=== PATIENT | female | born 1945 | race Caucasian/White ===

== ENCOUNTER → 2017-01-05 | Outpatient (CLI) | payer MEDICARE, OTHER ==
--- NOTE | 2017-01-10 10:46 | MM ---
Reason for exam: screening (asymptomatic). Last mammogram was performed 1 year and 1 month ago. History: Patient is postmenopausal. Family history of breast cancer in aunt. Physical Findings: A clinical breast exam by your physician is recommended on an annual basis and results should be correlated with mammographic findings. MG 3D Screening Mammo W/Cad Bilateral CC and MLO view(s) were taken. Prior study comparison: December 12, 2015, bilateral MG 3d screening mammo w/cad. August 19, 2014, bilateral MG screening mammo w CAD. The breast tissue is heterogeneously dense. This may lower the sensitivity of mammography. There is no discrete abnormality. ASSESSMENT: Negative, BI-RAD 1 RECOMMENDATION: Routine screening mammogram of both breasts in 1 year.
== END | disposition home or self-care (01) ==
LOC: RADMAMWWP 13:21
PROVIDERS: ATTEND Family Medicine
DX: Z12.31 Encounter for screening mammogram for malignant neoplasm of breast (principal)
CPT/HCPCS: 77063; G0202

== ENCOUNTER → 2019-02-27 | Outpatient (CLI) | payer MEDICARE, OTHER ==
--- NOTE | 2019-03-01 09:46 | MM ---
Reason for exam: screening (asymptomatic). Last mammogram was performed 2 years and 2 months ago. History: Patient is postmenopausal. Family history of breast cancer in aunt. Physical Findings: A clinical breast exam by your physician is recommended on an annual basis and results should be correlated with mammographic findings. MG 3D Screening Mammo W/Cad Bilateral CC and MLO view(s) were taken. Prior study comparison: January 05, 2017, bilateral MG 3d screening mammo w/cad. December 12, 2015, bilateral MG 3d screening mammo w/cad. The breast tissue is heterogeneously dense. This may lower the sensitivity of mammography. No significant changes when compared with prior studies. ASSESSMENT: Incomplete: need additional imaging evaluation, BI-RAD 0 RECOMMENDATION: Ultrasound of the left breast. [facility] will attempt to contact patient to return for ultrasound.
== END | disposition home or self-care (01) ==
LOC: RADMAMWWP 13:13
PROVIDERS: ATTEND Family Medicine
DX: Z12.31 Encounter for screening mammogram for malignant neoplasm of breast (principal)
CPT/HCPCS: 77063; 77067

== ENCOUNTER → 2019-03-14 | Outpatient (CLI) | payer MEDICARE, OTHER ==
--- NOTE | 2019-03-14 13:13 | USB ---
Reason for exam: additional evaluation requested from abnormal screening. History: Patient is postmenopausal. Family history of breast cancer in aunt. Physical Findings: Nurse Summary: all soft, nodular, movable, tenderness (nurse ts). US Breast Workup Limited LT Left limited breast ultrasound including focal area of concern, retroareolar and axilla demonstrates no cystic or solid lesion seen. No suspicious sonographic findings. These results were verbally communicated with the patient and result sheet given to the patient on 03/14/19. ASSESSMENT: Negative, BI-RAD 1 RECOMMENDATION: Return to routine screening mammogram schedule for both breasts. Manage on a clinical basis with regard to left breast pain.
== END | disposition home or self-care (01) ==
LOC: RADUSWWP 09:37
PROVIDERS: ATTEND Family Medicine
DX: R92.8 Other abnormal and inconclusive findings on diagnostic imaging of breast (principal)

== ENCOUNTER → 2021-01-05 | Outpatient (CLI) | payer MEDICARE, OTHER ==
--- NOTE | 2021-01-05 15:34 | XR ---
EXAMINATION TYPE: XR chest 2V DATE OF EXAM: 01/05/2021 COMPARISON: None HISTORY: 75-year-old female R63.4, abnormal weight loss TECHNIQUE: Frontal and lateral views FINDINGS: Heart normal size. Aorta and pulmonary vasculature within normal limits. Mild hyperinflation. There i s some bulging along the posterior diaphragm on the lateral view, either small area of eventration or small Bochdalek hernia. Otherwise, no consolidation or pleural effusion. IMPRESSION: Mild hyperinflation may relate to depth of inspiration or underlying emphysema. Clinically correlate. Otherwise, no acute process seen.
== END | disposition home or self-care (01) ==
LOC: RADXRMAIN 12:41
PROVIDERS: ATTEND Family Medicine
DX: R63.4 Abnormal weight loss (principal)
CPT/HCPCS: 71046

== ENCOUNTER → 2021-04-03 | Outpatient (CLI) | payer MEDICARE, OTHER ==
--- NOTE | 2021-04-06 11:42 | MM ---
Reason for exam: screening (asymptomatic). Last mammogram was performed 2 years and 1 month ago. History: Patient is postmenopausal. Family history of breast cancer in aunt. Physical Findings: A clinical breast exam by your physician is recommended on an annual basis and results should be correlated with mammographic findings. MG 3D Screening Mammo W/Cad Bilateral CC and MLO view(s) were taken. Prior study comparison: February 27, 2019, bilateral MG 3d screening mammo w/cad. January 05, 2017, bilateral MG 3d screening mammo w/cad. The breast tissue is heterogeneously dense. This may lower the sensitivity of mammography. Finding: There are indeterminate calcifications in the 3 o'clock position of the left breast 8-9cm from the nipple. New finding since February 27, 2019 and January 05, 2017. ASSESSMENT: Incomplete: need additional imaging evaluation, BI-RAD 0 RECOMMENDATION: Special view mammogram of the left breast. [facility] will attempt to contact patient to return for supplemental views.
== END | disposition home or self-care (01) ==
LOC: RADMAMWWP 09:56
PROVIDERS: ATTEND Family Medicine
DX: Z12.31 Encounter for screening mammogram for malignant neoplasm of breast (principal); Z80.3 Family history of malignant neoplasm of breast; Z78.0 Asymptomatic menopausal state
CPT/HCPCS: 77063; 77067

== ENCOUNTER → 2021-04-09 | Outpatient (CLI) | payer MEDICARE, OTHER ==
--- NOTE | 2021-04-09 11:33 | MM ---
Reason for exam: additional evaluation requested from abnormal screening. Last mammogram was performed less than 1 month ago. History: Patient is postmenopausal. Took estrogen beginning at age 33. Physical Findings: Nurse did not find any significant physical abnormalities on exam. MG 3D Work Up W/Cad LT CC with magnification, LM with magnification, and LM view(s) were taken of the left breast. Prior study comparison: April 03, 2021, bilateral MG 3d screening mammo w/cad. March 14, 2019, left breast US breast workup limited LT. February 27, 2019, bilateral MG 3d screening mammo w/cad. January 05, 2017, bilateral MG 3d screening mammo w/cad. The breast tissue is heterogeneously dense. This may lower the sensitivity of mammography. New grouped 4 o'clock punctate calcifications, biopsy recommended. These results were verbally communicated with the patient and result sheet given to the patient on 04/09/21. ASSESSMENT: Suspicious, BI-RAD 4 RECOMMENDATION: Stereotactic core biopsy of the left breast. Called office with mammographic findings and has scheduled an appointment for the patient for 04/22/21 at 2:[address] Vidal. PRELIMINARY REPORT CALLED AND FAXED TO DR. VIDAL ON 04/09/21.
== END | disposition home or self-care (01) ==
LOC: RADMAMWWP 10:08
PROVIDERS: ATTEND Family Medicine
DX: Z12.31 Encounter for screening mammogram for malignant neoplasm of breast (principal); R92.8 Other abnormal and inconclusive findings on diagnostic imaging of breast; Z78.0 Asymptomatic menopausal state
CPT/HCPCS: 77065; G0279; 77061

== ENCOUNTER → 2021-06-15 | Day surgery (SDC) | payer MEDICARE, OTHER ==
[2021-06-15 07:26] VITALS: RESP 16; TEMP 98.3
--- NOTE | 2021-06-15 10:02 | MM ---
EXAMINATION TYPE: MG discontinued stereo core LT DATE OF EXAM: 06/15/2021 COMPARISON: NONE CLINICAL HISTORY: Left breast calcifications TECHNIQUE: Stereotactic guided core biopsy of left breast. FINDINGS: The procedure of stereotactic guided core biopsy was explained to the patient. Benefits, a lternatives, and risks were discussed. An informed consent was then obtained. [facility]. The calcifications could not be adequately localized for safe percutaneous biopsy. Patient also had difficulty with lying on her stomach and positioning for the procedure. Procedure discontinued. IMPRESSION: 1. Discontinued stereotactic core biopsy as discussed above recommend needle localization.
[2021-06-15 11:25] VITALS: BP 148/82; PULSE 81
== END ==
LOC: RADMAMWWP 06:58
PROVIDERS: ATTEND Family Medicine
DX: N64.89 Other specified disorders of breast (principal); R92.1 Mammographic calcification found on diagnostic imaging of breast; Z53.8 Procedure and treatment not carried out for other reasons

== ENCOUNTER → 2021-06-18 | Outpatient (CLI) | payer MEDICARE, OTHER ==
[2021-06-18 08:24] VITALS: BP 132/82; PULSE 85; RESP 18; TEMP 98.2
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
== END ==
LOC: WWCWWP 08:10
PROVIDERS: ATTEND Surgery
DX: N60.11 Diffuse cystic mastopathy of right breast (principal); N60.12 Diffuse cystic mastopathy of left breast; R92.8 Other abnormal and inconclusive findings on diagnostic imaging of breast; I10 Essential (primary) hypertension; E78.00 Pure hypercholesterolemia, unspecified; F41.9 Anxiety disorder, unspecified; H40.9 Unspecified glaucoma; J44.9 Chronic obstructive pulmonary disease, unspecified; Z87.891 Personal history of nicotine dependence; M19.90 Unspecified osteoarthritis, unspecified site; Z88.5 Allergy status to narcotic agent; Z88.6 Allergy status to analgesic agent; Z91.040 Latex allergy status

== ENCOUNTER → 2021-07-30 | Outpatient (CLI) | payer MEDICARE, OTHER ==
[2021-07-30 14:59] VITALS: BP 159/80; PULSE 87; RESP 16; TEMP 98.1
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
== END ==
LOC: WWCWWP 14:33
PROVIDERS: ATTEND Surgery
DX: Z01.818 Encounter for other preprocedural examination (principal); R92.8 Other abnormal and inconclusive findings on diagnostic imaging of breast; L98.9 Disorder of the skin and subcutaneous tissue, unspecified; I10 Essential (primary) hypertension; F41.9 Anxiety disorder, unspecified; E78.00 Pure hypercholesterolemia, unspecified; F17.210 Nicotine dependence, cigarettes, uncomplicated; Z88.6 Allergy status to analgesic agent; Z88.5 Allergy status to narcotic agent; Z91.048 Other nonmedicinal substance allergy status; Z88.8 Allergy status to other drugs, medicaments and biological substances

== ENCOUNTER → 2021-08-27 | Outpatient (CLI) | payer MEDICARE, OTHER ==
[2021-08-27 12:55] VITALS: BP 147/73; PULSE 71; RESP 18; TEMP 97.7
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
== END ==
LOC: WWCWWP 11:31
PROVIDERS: ATTEND Surgery
DX: R92.8 Other abnormal and inconclusive findings on diagnostic imaging of breast (principal); I10 Essential (primary) hypertension; F41.9 Anxiety disorder, unspecified; E78.00 Pure hypercholesterolemia, unspecified; R55 Syncope and collapse; H40.9 Unspecified glaucoma; M99.87 Other biomechanical lesions of upper extremity; F17.210 Nicotine dependence, cigarettes, uncomplicated; Z88.5 Allergy status to narcotic agent; Z91.048 Other nonmedicinal substance allergy status; Z88.6 Allergy status to analgesic agent

== ENCOUNTER 2021-09-22 06:47 | Day surgery (SDC) | payer MEDICARE, OTHER ==
[2021-09-21 10:40] VITALS: BMI 25.4
[~2021-09-22 06:47] MED LIST: DEXAMETHASONE SOD PHOSPHATE 4 MG/ML 1 ML VIAL IV ONE; HEPARIN SODIUM,PORCINE/PF 5,000 UNIT/0.5 ML SYRINGE SQ PRN; LACTATED RINGERS 1,000 ML IV SCH; LIDOCAINE 1% (10MG/ML) FOR IV START INTRADERMA PRN; ONDANSETRON 4 MG/2 ML VIAL IVP ONE; Pre Op ABX Message 1 EACH MISC MISCELLANE ONE; fentaNYL (PF) 50 MCG/ML 2 ML AMP IV PRN
[2021-09-22] MEDS ORDERED: HYDROmorphone 0.5 MG/0.5 ML SYRINGE IVP PRN (07:00)
[2021-09-22] MEDS ORDERED: ONDANSETRON 4 MG/2 ML VIAL IVP PRN (07:00)
[2021-09-22] MEDS ORDERED: LACTATED RINGERS 1,000 ML IV ONE (07:19)
[2021-09-22] MEDS ORDERED: LIDOCAINE 1% INJ 10MG/ML (20 ML MDV) SQ ONE (08:27)
[2021-09-22] MEDS ORDERED: PROPOFOL 10 MG/ML 20 ML VIAL IV ONE (09:12)
[2021-09-22] MEDS ORDERED: PHENYLEPHRINE-0.9% NACL SYG 1,000 MCG/10 ML SYRINGE ONE (09:12)
[2021-09-22] MEDS ORDERED: LIDOCAINE 1% INJ 10MG/ML (20 ML MDV) ONE (09:12)
[2021-09-22] MEDS ORDERED: fentaNYL (PF) 50 MCG/ML 2 ML AMP ONE (09:12)
[2021-09-22] MEDS ORDERED: SUCCINYLCHOLINE CHLORIDE 100 MG/5 ML SYR IV ONE (09:12)
[2021-09-22] MEDS ORDERED: LIDOCAINE 1% INJ 10MG/ML (10 ML MDV) SQ ONE ×5 (09:41→10:20)
--- NOTE | 2021-09-22 10:17 | P.OP ---
Date of Procedure: 09/22/21 Preoperative Diagnosis: Mammographic abnormality left breast/failed attempt at stereotactic core biopsy Postoperative Diagnosis: Same Procedure(s) Performed: Localization excisional lumpectomy, onco-plastic tissue transfer 43 cm Anesthesia: KAROLYNA Surgeon: Winnie Iverson Estimated Blood Loss (ml): 5 IV fluids (ml): 200 Pathology: other (breast tissue) Condition: stable Disposition: same day Indications for Procedure: Microcalcifications of concern left breast Operative Findings: Fibrofatty breast tissue/microcalcifications of concern noted and radiographic specimen Description of Procedure: The patient is a 75-year-old white female who on mammogram was noted to have microcalcifications of concern in the left breast. She was unable to tolerate a stereotactic core biopsy needle localization and excision was recommended. Following needle localization of the area of concern she was brought to the operative suite. Following induction of anesthesia the left breast was prepped and draped in a sterile fashion. An incision was made and carried down to the hook needle. Surrounding tissue was excised. The cavity was 4 x 3 cm for 12 cm, the area was irrigated and we assured the hemostasis was attained. The specimen was painted for orientation and sent to radiology. Radiograph of the specimen revealed the calcifications of concern were present. Titanium clips were placed. The superior pillar was mobilized this was 5 cm x 3 cm for a total of 15 cm and inferior pillar was mobilized which was 4 x 4 centimeters for 16 cm. A total of 43 cm was mobilized. The deep tissues were closed bringing the superior and inferior pillars together using 3-0 Vicryl suture. Following this 3-0 Vicryl subcutaneous sutures were placed. A 4-0 Monocryl subcuticular suture was placed. The patient tolerated the procedure in stable condition. All instrument and sponge counts were correct at the end of the case.
--- NOTE | 2021-09-22 10:19 | P.DS ---
Providers Attending physician: Winnie Iverson Primary care physician: Agus Vidal Plan - Discharge Summary Discharge Rx Participant: Yes New Discharge Prescriptions: No Action LORazepam [Ativan] 0.5 mg PO TID Mirabegron [Myrbetriq] 50 mg PO DAILY amLODIPine BESYLATE [Norvasc] 2.5 mg PO HS Latanoprostene Bunod [Vyzulta] 1 drop BOTH EYES HS Celecoxib [CeleBREX] 200 mg PO DAILY Ergocalciferol [Vitamin D2 (1250 Mcg = 38569 Iu)] 1 tab PO ALMAGUER Mirtazapine [Remeron] 45 mg PO HS Aspirin EC [Ecotrin Low Dose] 81 mg PO DAILY Dorzolamide 2% [Trusopt 2%] 1 drops BOTH EYES BID Pilocarpine 1% Ophth Soln [Isopto Carpine 1%] 1 drops BOTH EYES BID Brimonidine Tartrate [Alphagan P 0.2% Ophth Soln] 1 drops BOTH EYES BID Discharge Medication List Celecoxib [CeleBREX] 200 mg PO DAILY 06/01/21 [History] Ergocalciferol [Vitamin D2 (1250 Mcg = 68687 Iu)] 1 tab PO ALMAGUER 06/09/21 [History] LORazepam [Ativan] 0.5 mg PO TID 06/09/21 [History] Mirabegron [Myrbetriq] 50 mg PO DAILY 06/09/21 [History] amLODIPine BESYLATE [Norvasc] 2.5 mg PO HS 08/27/21 [History] Aspirin EC [Ecotrin Low Dose] 81 mg PO DAILY 09/21/21 [History] Brimonidine Tartrate [Alphagan P 0.2% Ophth Soln] 1 drops BOTH EYES BID 09/21/21 [History] Dorzolamide 2% [Trusopt 2%] 1 drops BOTH EYES BID 09/21/21 [History] Latanoprostene Bunod [Vyzulta] 1 drop BOTH EYES HS 09/21/21 [History] Mirtazapine [Remeron] 45 mg PO HS 09/21/21 [History] Pilocarpine 1% Ophth Soln [Isopto Carpine 1%] 1 drops BOTH EYES BID 09/21/21 [History] Follow up Appointment(s)/Referral(s): Winnie Iverson MD [STAFF PHYSICIAN] - 1 Week Activity/Diet/Wound Care/Special Instructions: may shower after [address] for 24 hours from discharge or if taking narcotic pain medicine Discharge Disposition: HOME SELF-CARE
[2021-09-22 10:38] VITALS: TEMP 97
[2021-09-22] MEDS ORDERED: ONDANSETRON 4 MG/2 ML VIAL IVP ONE (11:22)
[2021-09-22] MEDS ORDERED: ACETAMINOPHEN TAB 500 MG TAB PO STA (11:53)
[2021-09-22 12:20] VITALS: BP 144/71; PULSE 76; RESP 20
--- NOTE | 2021-09-22 16:23 | MM ---
EXAMINATION TYPE: MG surgical specimen LT DATE OF EXAM: 09/22/2021 COMPARISON: NONE CLINICAL HISTORY: Abnormal mammogram TECHNIQUE: Needle localization with wire placement and surgical excision of area of concern in the le ft breast. FINDINGS: The procedure of needle localization with wire placement for surgical excision was explaine d to the patient. Risk, benefits, and alternatives were discussed. An informed consent was then obt ained. A timeout was performed. The overlying skin was prepped and draped in usual sterile fashion. Lidocaine 1% was used as anesthe tic into the skin and subcutaneous tissue up to the level of area of concern. A 7 cm needle was used . This was placed via a lateral approach under mammographic guidance. Subsequent 90 degrees mammogr am show the needle to be in satisfactory position relative to the targeted area. The wire was placed through the needle and the needle was withdrawn. The wire was fixed to patient's skin. Images were marked for surgeon. Images were reviewed with surgeon prior to surgery. The patient tolerated the procedure well without any immediate complication. Specimen: The wire and the targeted calcifications are identified within the specimen mammogram. IMPRESSION: 1. Successful wire localization and excision. Recommendations: 1. Recommendations are pending pathology results.
== END 2021-09-22 12:58 | disposition home or self-care (01) ==
LOC: OR 06:47
PROVIDERS: ATTEND Surgery
DX: R92.8 Other abnormal and inconclusive findings on diagnostic imaging of breast (principal); N60.12 Diffuse cystic mastopathy of left breast; N60.22 Fibroadenosis of left breast; Z79.82 Long term (current) use of aspirin; I10 Essential (primary) hypertension; E78.5 Hyperlipidemia, unspecified; J44.9 Chronic obstructive pulmonary disease, unspecified; F17.200 Nicotine dependence, unspecified, uncomplicated; F41.9 Anxiety disorder, unspecified; F32.A Depression, unspecified; K21.9 Gastro-esophageal reflux disease without esophagitis; Z79.899 Other long term (current) drug therapy
CPT/HCPCS: 19281; 19301; 88307; 76098; C1819; J1100; J2405; J2001 ×2; J3010; J2370; J0330; J2704; J1644

== ENCOUNTER → 2021-10-01 | Outpatient (CLI) | payer MEDICARE, OTHER ==
[2021-10-01 10:20] VITALS: BP 128/77; PULSE 81; RESP 20; TEMP 98.2
--- NOTE | 2021-10-01 10:36 | P.PN ---
Progress Note - Text Progress Note Date: 10/01/21 Rhina status post left breast needle local excisional lumpectomy on . Pathology was benign. She has done well postoperatively without complaints. Examination: Incision clean and dry no evidence of any infection or hematoma Impression: Benign left breast lumpectomy on Plan: Repeat left breast mammogram in 6 months with examination at that time CC: Dr. Vidal
== END ==
LOC: WWCWWP 10:08
PROVIDERS: ATTEND Surgery
DX: Z48.817 Encounter for surgical aftercare following surgery on the skin and subcutaneous tissue (principal); N60.92 Unspecified benign mammary dysplasia of left breast; Z88.5 Allergy status to narcotic agent; Z91.041 Radiographic dye allergy status; Z91.040 Latex allergy status

== ENCOUNTER → 2022-02-15 | Outpatient (CLI) | payer MEDICARE, OTHER ==
[~2022-02-15] MED LIST changes: +DENOSUMAB 60 MG/ML 1 ML SYRINGE SQ NR; -DEXAMETHASONE SOD PHOSPHATE 4 MG/ML 1 ML VIAL IV ONE; -HEPARIN SODIUM,PORCINE/PF 5,000 UNIT/0.5 ML SYRINGE SQ PRN; -LACTATED RINGERS 1,000 ML IV SCH; -LIDOCAINE 1% (10MG/ML) FOR IV START INTRADERMA PRN; -ONDANSETRON 4 MG/2 ML VIAL IVP ONE; -Pre Op ABX Message 1 EACH MISC MISCELLANE ONE; -fentaNYL (PF) 50 MCG/ML 2 ML AMP IV PRN
[2022-02-15 10:37] VITALS: BP 163/75; PULSE 15; RESP 80; TEMP 98.4
== END ==
LOC: PROCWHC3 10:23
PROVIDERS: ATTEND Family Medicine
DX: M81.0 Age-related osteoporosis without current pathological fracture (principal); Z88.5 Allergy status to narcotic agent; Z91.041 Radiographic dye allergy status; Z91.048 Other nonmedicinal substance allergy status; Z88.8 Allergy status to other drugs, medicaments and biological substances; Z91.040 Latex allergy status
CPT/HCPCS: 96372; J0897

== ENCOUNTER → 2022-04-02 | Outpatient (CLI) | payer MEDICARE, OTHER ==
--- NOTE | 2022-04-02 15:34 | MM ---
Reason for Exam: Follow-up at short interval from prior study. Last screening mammogram was performed 12 month(s) ago. Patient History: Menarche at age 8. First Full-Term at age 19. Left ovary removed at age 33. Right ovary removed at age 33. Hysterectomy at age 33. Postmenopausal. Estrogen, starting at age 33. 09/22/2021, Lumpectomy on the Left side. 09/22/2021, Benign Core Biopsy on the left side. 06/15/2021, MG discontinued stereo core LT on the left side. Risk Values: Lorrie 5 year model risk: 2.0%. NCI Lifetime model risk: 3.9%. Prior Study Comparison: 11/12/1995 Screening Mammogram, Unknown. 12/17/2005 Bilateral Screening Mammogram, [facility]. 08/19/2014 Bilateral Screening Mammogram, [facility]. 12/12/2015 Bilateral Screening Mammogram, [facility]. 01/05/2017 Bilateral Screening Mammogram, [facility]. 02/27/2019 Bilateral Screening Mammogram, [facility]. 03/14/2019 Left Diagnostic Ultrasound, [facility]. 04/03/2021 Bilateral Screening Mammogram, [facility]. 04/09/2021 Left Diagnostic Mammogram, [facility]. Tissue Density: Left: The breast tissue is heterogeneously dense. This may lower the sensitivity of mammography. Findings: Analyzed By CAD. Postoperative changes left breast. No evidence for recurrent or residual mass. No suspicious calcifications. Overall Assessment: Benign, BI-RAD 2 Management: Screening Mammogram of both breasts in 6 months. A clinical breast exam by your physician is recommended on an annual basis and results should be correlated with mammographic findings. This exam should not preclude additional follow-up of suspicious palpable abnormalities. Results were given to the patient verbally at the time of exam. Electronically signed and approved by: Dain Knapp M.D. Radiologis
== END | disposition home or self-care (01) ==
LOC: RADMAMWWP 10:36
PROVIDERS: ATTEND Surgery
DX: R92.8 Other abnormal and inconclusive findings on diagnostic imaging of breast (principal); Z78.0 Asymptomatic menopausal state
CPT/HCPCS: 77065

== ENCOUNTER → 2022-04-08 | Outpatient (CLI) | payer MEDICARE, OTHER ==
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
[2022-04-08 13:26] VITALS: BP 146/68; PULSE 70; RESP 17; TEMP 98.4
== END | disposition home or self-care (01) ==
LOC: WWCWWP 12:32
PROVIDERS: ATTEND Surgery
DX: Z53.9 Procedure and treatment not carried out, unspecified reason (principal)

== ENCOUNTER → 2022-10-25 | Outpatient (CLI) | payer MEDICARE, OTHER ==
--- NOTE | 2022-10-25 14:47 | MM ---
Reason for Exam: Follow-up at short interval from prior study. Last mammogram was performed 1 year(s) and 7 month(s) ago. Patient History: Menarche at age 8. First Full-Term at age 19. Left ovary removed at age 33. Right ovary removed at age 33. Hysterectomy at age 33. Postmenopausal. Estrogen, starting at age 33. 09/22/2021, Lumpectomy on the Left side. 09/22/2021, Benign Core Biopsy on the left side. 06/15/2021, MG discontinued stereo core LT on the left side. Risk Values: Lorrie 5 year model risk: 2.0%. NCI Lifetime model risk: 3.6%. Prior Study Comparison: 08/19/2014 Bilateral Screening Mammogram, [facility]. 12/12/2015 Bilateral Screening Mammogram, [facility]. 01/05/2017 Bilateral Screening Mammogram, [facility]. 02/27/2019 Bilateral Screening Mammogram, [facility]. 03/14/2019 Left Diagnostic Ultrasound, [facility]. 04/03/2021 Bilateral Screening Mammogram, [facility]. 04/09/2021 Left Diagnostic Mammogram, [facility]. 04/02/2022 Left MG diagnostic mammo LT w CAD, [facility]. Tissue Density: The breast tissue is heterogeneously dense. This may lower the sensitivity of mammography. Findings: Analyzed By CAD. Postexcisional changes central left breast. There is a lateral asymmetric density, approximately 3:00 position. On the spot 3-D MLO, superimposed on the density, there is suggestion of a 8mm oval circumscribed nodule. Further ultrasound evaluation is recommended. Overall Assessment: Incomplete: need additional imaging evaluation, BI-RAD 0 Management: Diagnostic Breast Ultrasound of the left breast. 1:00 to 5:00. Electronically signed and approved by: Dave Cruz M.D. Radiologist
--- NOTE | 2022-10-25 15:08 | USB ---
Reason for Exam: Additional evaluation requested from abnormal screening. Patient History: Menarche at age 8. First Full-Term at age 19. Left ovary removed at age 33. Right ovary removed at age 33. Hysterectomy at age 33. Postmenopausal. Estrogen, starting at age 33. 09/22/2021, Lumpectomy on the Left side. 09/22/2021, Benign Core Biopsy on the left side. 06/15/2021, MG discontinued stereo core LT on the left side. Risk Values: Lorrie 5 year model risk: 2.0%. NCI Lifetime model risk: 3.6%. Technique: Method: Targeted. Prior Study Comparison: 03/14/2019 Left Diagnostic Ultrasound, [facility]. 04/03/2021 Bilateral Screening Mammogram, [facility]. 04/09/2021 Left Diagnostic Mammogram, [facility]. 04/02/2022 Left MG diagnostic mammo LT w CAD, [facility]. Findings: The lateral section of the breast of the left breast, the axilla of the left breast and the retroareolar of the left breast were scanned. Targeted ultrasound left breast 1:00 to 5:00 including the subareolar region and axilla. * At the 3:00 position, 8 cm from the nipple, there is an oval benign cyst measuring 1.6 x 1.5 x 0.5 cm. * At the 3:00 position, 6 cm from the nipple, there is an additional but smaller benign 4 x 4 by 4 mm cyst. * No other solid or cystic lesions. * No duct ectasia or axillary lymphadenopathy. Overall Assessment: Probably benign, BI-RAD 3 Management: Diagnostic Mammogram of the left breast in 6 months. A clinical breast exam by your physician is recommended on an annual basis and results should be correlated with mammographic findings. This exam should not preclude additional follow-up of suspicious palpable abnormalities. Results were given to the patient verbally at the time of exam. Electronically signed and approved by: Dave Cruz M.D. Radiologist
== END | disposition home or self-care (01) ==
LOC: RADMAMWWP 13:43
PROVIDERS: ATTEND Surgery
DX: N60.02 Solitary cyst of left breast (principal); Z78.0 Asymptomatic menopausal state; Z85.3 Personal history of malignant neoplasm of breast; Z90.721 Acquired absence of ovaries, unilateral
CPT/HCPCS: 77066; 76642; G0279; 77062

== ENCOUNTER → 2022-11-05 | Outpatient (CLI) | payer MEDICARE, OTHER ==
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
[2022-11-05 12:27] VITALS: BP 145/73; PULSE 78; RESP 17; TEMP 97.8
== END ==
LOC: WWCWWP 11:25
PROVIDERS: ATTEND Surgery
DX: N60.12 Diffuse cystic mastopathy of left breast (principal); N60.11 Diffuse cystic mastopathy of right breast; N60.22 Fibroadenosis of left breast; I10 Essential (primary) hypertension; E78.00 Pure hypercholesterolemia, unspecified; F41.9 Anxiety disorder, unspecified; B48.8 Other specified mycoses; Z98.890 Other specified postprocedural states; Z88.0 Allergy status to penicillin; Z88.2 Allergy status to sulfonamides; Z88.5 Allergy status to narcotic agent; Z91.048 Other nonmedicinal substance allergy status; Z88.8 Allergy status to other drugs, medicaments and biological substances

== ENCOUNTER → 2022-11-11 | Outpatient (CLI) | payer MEDICARE, OTHER ==
[2022-11-11 13:04] VITALS: BP 154/82; PULSE 80; RESP 16; TEMP 98.4
== END ==
LOC: PROCWHC3 12:29
PROVIDERS: ATTEND Family Medicine
DX: M81.0 Age-related osteoporosis without current pathological fracture (principal)
CPT/HCPCS: 96372; J0897

== ENCOUNTER → 2023-06-10 | Outpatient (CLI) | payer MEDICARE, OTHER ==
--- NOTE | 2023-06-10 09:53 | MM ---
Reason for Exam: Follow-up at short interval from prior study. Last screening mammogram was performed 8 month(s) ago. Patient History: Menarche at age 8. First Full-Term at age 19. Left ovary removed at age 33. Right ovary removed at age 33. Hysterectomy at age 33. Postmenopausal. Estrogen, starting at age 33. 09/22/2021, Lumpectomy on the Left side. 09/22/2021, Benign Core Biopsy on the left side. 06/15/2021, MG discontinued stereo core LT on the left side. Risk Values: Lorrie 5 year model risk: 2.0%. NCI Lifetime model risk: 3.6%. Prior Study Comparison: 04/09/2021 Left Diagnostic Mammogram, [facility]. 04/02/2022 Left MG diagnostic mammo LT w CAD, [facility]. 10/25/2022 Bilateral MG 3D diag mammo w/cad [place], [facility]. Tissue Density: Left: The breast tissue is heterogeneously dense. This may lower the sensitivity of mammography. Findings: Analyzed By CAD. Pattern appears stable. Multiple surgical clips remain stable within the mid left breast. No significant interval change. No suspicious groups of microcalcifications, spiculated or lobular masses, architectural distortion or other secondary signs of malignancy are mammographically apparent. Overall Assessment: Benign, BI-RAD 2 Management: Screening Mammogram of both breasts in 6 months. A negative mammogram report should not preclude additional follow up of suspicious palpable abnormalities. Patient should continue monthly self breast exam. A clinical breast exam by your physician is recommended on an annual basis and results should be correlated with mammographic findings. Electronically signed and approved by: Trenton Yang D.O. Radiologis
== END | disposition home or self-care (01) ==
LOC: RADMAMWWP 09:09
PROVIDERS: ATTEND Surgery
DX: R92.332 Mammographic heterogeneous density, left breast (principal); Z78.0 Asymptomatic menopausal state
CPT/HCPCS: 77065; G0279; 77061